=== PATIENT | male | born 1965 | race American Indian/Alaskan Native ===

== ENCOUNTER 2017-08-09 00:04 | Inpatient (IN) | payer OTHER ==
[2017-08-09 00:38] LABS: Basophils % (Auto) 0.7 % (0.0-1.8); Eosinophils % (Auto) 0.3 % (0.0-4.3); Hemoglobin 17.9 gm/dl (11.8-15.2); Mean Corpuscular HGB Conc 34 % (32-34); Mean Corpuscular Hemoglobin 34 pg (28-32); Mean Corpuscular Volume 98 fl (84-94); Platelet Count 250 K/mm3 (140-440); Red Cell Distribution Width 14.3 % (13.2-15.2); White Blood Count 8.9 K/mm3 (4.5-11.0)
[2017-08-09 00:57] LABS: Anion Gap 23 mmol/L; BUN/Creatinine Ratio 7; Blood Urea Nitrogen 10 mg/dL (9-20); Calcium 9.4 mg/dL (8.4-10.2); Carbon Dioxide 22 mmol/L (22-30); Chloride 97.9 mmol/L (98-107); Glucose 91 mg/dL (75-100); Potassium 3.8 mmol/L (3.6-5.0); Sodium 139 mmol/L (137-145)
[2017-08-09 04:42] LABS: Urine Drugs of Abuse Note Disclamer
[2017-08-09 05:01] LABS: Bacteria,Urine 1+ /HPF (Negative); Bilirubin,Urine NEG (Negative); Blood,Urine MOD (Negative); Ketones,Urine NEG (Negative); Leukocyte Esterase,Urine NEG (Negative); Mucus,Urine FEW /HPF; Nitrite,Urine NEG (Negative); Protein,Urine <15 mg/dL mg/dL (Negative); Urobilinogen,Urine < 2.0 mg/dL (<2.0)
--- NOTE | 2017-08-09 10:08 | Emergency Department Report ---
ED Chest Pain HPI - General Chief Complaint: Chest Pain Stated Complaint: CHEST PAIN/SOB Time Seen by Provider: 08/09/17 10:07 Source: patient Mode of arrival: Ambulatory Limitations: No Limitations - History of Present Illness Initial Comments: This is a 51-year-old male, the patient does not have a primary care doctor and he is previously unknown to this provider. Patient presents to the ER with complaint of central chest pain, associated with lightheadedness, diaphoresis and near syncope. The pain does not radiate to the back, arms or neck. There is no vomiting. Patient describes the pain also decreases when he consumes water. There is no abdominal pain. There is no leg pain. There is no leg swelling. No recent trips. No recent surgeries. No recent aspirin use, no recent cocaine use. Patient states no family history of DVT, pulmonary M Guzman , heart disease that he is aware of. MD Complaint: chest pain -: Gradual Pain Location: substernal, left chest Pain Radiation: none Severity scale (0 -10): 1 Quality: aching Consistency: intermittent Improves With: other (per hpi) Worsens With: other (per hpi) re: diaphoresis Treatments Prior to Arrival: none Aspirin use within the Past 7 Days: (0) No - Related Data Previous Rx's Medication Instructions Recorded Last Taken Type Acetaminophen/Codeine [Tylenol #3] 1 tab PO Q6H PRN #12 tab 12/14/16 Unknown Rx Amoxicillin 500 mg PO BID #20 capsule 12/14/16 Unknown Rx Chlorhexidine Mouthwash [Peridex] 15 ml MM BID 7 Days 12/14/16 Unknown Rx Ibuprofen [Motrin] 600 mg PO Q8H PRN #15 tablet 12/14/16 Unknown Rx Allergies Allergy/AdvReac Type Severity Reaction Status Date / Time No Known Allergies Allergy Verified 12/14/16 08:07 Heart Score - HEART Score History: Moderately suspicious EKG: Non-specific Age: 45-65 Risk factors: No known risk factors Troponin: < normal limit HEART Score: 3 - Critical Actions Critical Actions: 0-3 pts:0.9-1.7%risk of adverse cardiac event.Candidate for discharge ED Review of Systems ROS: Stated complaint: CHEST PAIN/SOB Other details as noted in HPI ED Past Medical Hx - Past Medical History Previous Medical History?: No Hx Hypertension: No - Surgical History Past Surgical History?: No - Social History Smoking Status: Current Every Day Smoker Substance Use Type: None - Medications Home Medications: Home Medications Medication Instructions Recorded Confirmed Last Taken Type Acetaminophen/Codeine [Tylenol #3] 1 tab PO Q6H PRN #12 tab 12/14/16 Unknown Rx Amoxicillin 500 mg PO BID #20 capsule 12/14/16 Unknown Rx Chlorhexidine Mouthwash [Peridex] 15 ml MM BID 7 Days 12/14/16 Unknown Rx Ibuprofen [Motrin] 600 mg PO Q8H PRN #15 tablet 12/14/16 Unknown Rx ED Physical Exam - General Limitations: No Limitations General appearance: alert, in no apparent distress - Head Head exam: Present: atraumatic, normocephalic - Eye Eye exam: Present: normal appearance, EOMI. Absent: nystagmus - ENT ENT exam: Present: normal exam, normal orophraynx, mucous membranes moist, normal external ear exam - Neck Neck exam: Present: normal inspection, full ROM. Absent: tenderness, meningismus - Respiratory Respiratory exam: Present: normal lung sounds bilaterally. Absent: respiratory distress, wheezes, rales, rhonchi, stridor, chest wall tenderness, accessory muscle use, decreased breath sounds, prolonged expiratory - Cardiovascular Cardiovascular Exam: Present: regular rate, normal rhythm, normal heart sounds. Absent: bradycardia, tachycardia, irregular rhythm, systolic murmur, diastolic murmur, rubs, gallop - GI/Abdominal GI/Abdominal exam: Present: soft, normal bowel sounds. Absent: distended, tenderness, guarding, rebound, rigid, pulsatile mass - Rectal Rectal exam: Present: deferred - Extremities Exam Extremities exam: Present: normal inspection, full ROM, normal capillary refill , other (2+ pulses noted in the bilateral upper and lower extremities, pulses are equal). Absent: pedal edema, joint swelling, calf tenderness - Back Exam Back exam: Present: normal inspection, full ROM. Absent: paraspinal tenderness , vertebral tenderness - Neurological Exam Neurological exam: Present: alert, oriented X3, normal gait, other (Extraocular movements intact. Tongue midline. No facial droop. Facial sensation intact to light touch in the V1, V2, V3 distribution bilaterally. 5 and 5 strength in 4 extremities.. Sensation is intact to light touch in 4 extremities.). Absent : motor sensory deficit - Psychiatric Psychiatric exam: Present: anxious - Skin Skin exam: Present: warm, dry, intact, normal color. Absent: rash ED Course Vital Signs 08/09/17 08/09/17 08/09/17 00:16 08:11 09:27 Temperature 98.1 F Pulse Rate 94 H 77 Respiratory 18 18 19 Rate Blood Pressure 99/66 Blood Pressure 122/83 [Right] O2 Sat by Pulse 95 97 Oximetry JESSENIA score - Jessenia Score Age > 65: (0) No Aspirin use within the Past 7 Days: (0) No 3 or more CAD Risk Factors: (0) No 2 or more Angina events in past 24 hrs: (0) No Known CAD with more than 50% Stenosis: (0) No Elevated Cardiac Markers: (0) No ST Deviation Greater than 0.5mm: (0) No JESSENIA Score: 0 ED Medical Decision Making - Lab Data Result diagrams: 08/09/17 00:22 08/09/17 00:22 Vital Signs 08/09/17 08/09/17 08/09/17 00:16 08:11 09:27 Temperature 98.1 F Pulse Rate 94 H 77 Respiratory 18 18 19 Rate Blood Pressure 99/66 Blood Pressure 122/83 [Right] O2 Sat by Pulse 95 97 Oximetry Lab Results 08/09/17 08/09/17 08/09/17 Range/Units 00:22 00:22 03:21 WBC 8.9 (4.5-11.0) K/mm3 RBC 5.30 H (3.65-5.03) M/mm3 Hgb 17.9 H (11.8-15.2) gm/dl Hct 52.0 H (35.5-45.6) % MCV 98 H (84-94) fl MCH 34 H (28-32) pg MCHC 34 (32-34) % RDW 14.3 (13.2-15.2) % Plt Count 250 (140-440) K/mm3 Lymph % (Auto) 30.5 (13.4-35.0) % [place] % (Auto) 8.3 H (0.0-7.3) % Eos % (Auto) 0.3 (0.0-4.3) % Baso % (Auto) 0.7 (0.0-1.8) % Lymph # 2.7 (1.2-5.4) K/mm3 [place] # 0.7 (0.0-0.8) K/mm3 Eos # 0.0 (0.0-0.4) K/mm3 Baso # 0.1 (0.0-0.1) K/mm3 Seg Neutrophils % 60.2 (40.0-70.0) % Seg Neutrophils # 5.4 (1.8-7.7) K/mm3 Sodium 139 (137-145) mmol/L Potassium 3.8 (3.6-5.0) mmol/L Chloride 97.9 L (98-107) mmol/L Carbon Dioxide 22 (22-30) mmol/L Anion Gap 23 mmol/L BUN 10 (9-20) mg/dL Creatinine 1.4 (0.8-1.5) mg/dL Estimated GFR > 60 ml/min BUN/Creatinine Ratio 7 % Glucose 91 (75-100) mg/dL Calcium 9.4 (8.4-10.2) mg/dL Troponin T < 0.010 < 0.010 (0.00-0.029) ng/mL Urine Color (Yellow) Urine Turbidity (Clear) Urine pH (5.0-7.0) Ur Specific [place] (1.003-1.030) Urine Protein (Negative) mg/dL Urine Glucose (UA) (Negative) mg/dL Urine Ketones (Negative) mg/dL Urine Blood (Negative) Urine Nitrite (Negative) Urine Bilirubin (Negative) Urine Urobilinogen (<2.0) mg/dL Ur Leukocyte Esterase (Negative) Urine WBC (Auto) (0.0-6.0) /HPF Urine RBC (Auto) (0.0-6.0) /HPF U Epithel Cells (Auto) (0-13.0) /HPF Urine Bacteria (Auto) (Negative) /HPF Hyaline Casts /LPF Urine Mucus /HPF Urine Opiates Screen Urine Methadone Screen Ur Barbiturates Screen Ur Phencyclidine Scrn Ur Amphetamines Screen U Benzodiazepines Scrn Urine Cocaine Screen U Marijuana (THC) Screen Drugs of Abuse Note 08/09/17 08/09/17 08/09/17 Range/Units 04:37 04:37 06:15 WBC (4.5-11.0) K/mm3 RBC (3.65-5.03) M/mm3 Hgb (11.8-15.2) gm/dl Hct (35.5-45.6) % MCV (84-94) fl MCH (28-32) pg MCHC (32-34) % RDW (13.2-15.2) % Plt Count (140-440) K/mm3 Lymph % (Auto) (13.4-35.0) % [place] % (Auto) (0.0-7.3) % Eos % (Auto) (0.0-4.3) % Baso % (Auto) (0.0-1.8) % Lymph # (1.2-5.4) K/mm3 [place] # (0.0-0.8) K/mm3 Eos # (0.0-0.4) K/mm3 Baso # (0.0-0.1) K/mm3 Seg Neutrophils % (40.0-70.0) % Seg Neutrophils # (1.8-7.7) K/mm3 Sodium (137-145) mmol/L Potassium (3.6-5.0) mmol/L Chloride (98-107) mmol/L Carbon Dioxide (22-30) mmol/L Anion Gap mmol/L BUN (9-20) mg/dL Creatinine (0.8-1.5) mg/dL Estimated GFR ml/min BUN/Creatinine Ratio % Glucose (75-100) mg/dL Calcium (8.4-10.2) mg/dL Troponin T < 0.010 (0.00-0.029) ng/mL Urine Color Yellow (Yellow) Urine Turbidity Clear (Clear) Urine pH 5.0 (5.0-7.0) Ur Specific [place] 1.011 (1.003-1.030) Urine Protein <15 mg/dl (Negative) mg/dL Urine Glucose (UA) Neg (Negative) mg/dL Urine Ketones Neg (Negative) mg/dL Urine Blood Mod (Negative) Urine Nitrite Neg (Negative) Urine Bilirubin Neg (Negative) Urine Urobilinogen < 2.0 (<2.0) mg/dL Ur Leukocyte Esterase Neg (Negative) Urine WBC (Auto) 2.0 (0.0-6.0) /HPF Urine RBC (Auto) 3.0 (0.0-6.0) /HPF U Epithel Cells (Auto) 1.0 (0-13.0) /HPF Urine Bacteria (Auto) 1+ (Negative) /HPF Hyaline Casts 7 /LPF Urine Mucus Few /HPF Urine Opiates Screen Presumptive negative Urine Methadone Screen Presumptive negative Ur Barbiturates Screen Presumptive negative Ur Phencyclidine Scrn Presumptive negative Ur Amphetamines Screen Presumptive negative U Benzodiazepines Scrn Presumptive negative Urine Cocaine Screen Presumptive negative U Marijuana (THC) Screen Presumptive positive Drugs of Abuse Note Disclamer - EKG Data -: EKG Interpreted by Me - EKG Data When compared to previous EKG there are: previous EKG unavailable 08/09/17 10:50 EKG #1: Normal sinus, 73 bpm, normal axis, normal QTC, left ventricular hypertrophy, poor R wave progression, abnormal EKG, not morphologically consistent with STEMI. EKG #2 demonstrates sinus, high left ventricular voltage, nonspecific ST morphology V2, V3, not consistent with STEMI. Abnormal EKG. No prior for comparison. - Radiology Data Radiology results: image reviewed interpreted by me: X-ray of the chest is negative for acute disease, hyperinflated lungs are suggested - Medical Decision Making Differential diagnosis: GERD, gastritis, pneumonia, acute coronary syndrome, pericarditis, myocarditis Assessment and plan: 51-year-old male with chest pain, diaphoresis, near syncope , abnormal EKG. Troponin negative 3. Therefore, pericarditis, myocarditis unlikely. X-ray of the chest negative. Equal pulses in 4 extremities, not especially hypertensive, therefore doubt aortic disease. Given clinical history , abnormal EKG, patient is not suitable to have an ACS wrist revocation as an outpatient. Case presented to the hospital nurse practitioner, Alexander Cunha; she accepts the patient to the medical service Critical care attestation.: If time is entered above; I have spent that time in minutes in the direct care of this critically ill patient, excluding procedure time. ED Disposition Clinical Impression: Chest pain Disposition: -09 OP ADMIT IP TO THIS HOSP Is pt being admited?: Yes Does the pt Need Aspirin: Yes Condition: Stable Instructions: Chest Pain (ED) Referrals: PRIMARY CARE, [Primary Care Provider] - 3-5 Days
[2017-08-09] MEDS ORDERED: TYLENOL PO PRN (10:45)
[2017-08-09] MEDS ORDERED: DULCOLAX PR PRN (10:45)
[2017-08-09] MEDS ORDERED: MORPHINE IV PRN (10:45)
[2017-08-09] MEDS ORDERED: NITROSTAT SL PRN (10:47)
[2017-08-09] MEDS ORDERED: BABY ASPIRIN PO ONE (10:52)
--- NOTE | 2017-08-09 10:52 | XRay Report ---
CHEST 2 VIEWS INDICATION: Chest pain. COMPARISON: None similar at this institution. FINDINGS: PA and lateral chest radiographs demonstrate normal cardiomediastinal silhouette. Clear, mildly hyperinflated lungs. Intact bones. CONCLUSION: No acute disease in the chest. Thank you for the opportunity to participate in this patient's care.
--- NOTE | 2017-08-09 12:37 | History and Physical Report ---
History of Present Illness Date of examination: 08/09/17 Date of admission: 08/09/17 11:54 Chief complaint: Chest pain History of present illness: Patient is a 51 years old male with no past medical history who presented to the Emergency Department complaining of Midsternal chest pain. He states that the pain began yesterday while he was at work, intermittent midsternal chest pain. Patient described the pain as, sharp, pressure and squeezing in his chest ; that radiates to the back. The sharp pain lasted around 1 minute. There is no aggravating or reliving factors. The painful episodes did not increase in intensity or severity during this time. Patient denies chest pain at present time. He denies nausea, vomiting during these episodes of pain. He experienced shortness of breath, nausea, and diaphoresis during these episodes of pain. He has never had chest pain in the past. He continued to have several episodes of the pain throughout the morning, he decided to come to the emergency department. Past History Past Medical History: No medical history Past Surgical History: No surgical history Social history: smoking Family history: hypertension Medications and Allergies Allergies Allergy/AdvReac Type Severity Reaction Status Date / Time No Known Allergies Allergy Verified 12/14/16 08:07 Home Medications Medication Instructions Recorded Confirmed Last Taken Type No Known Home Medications [No 08/09/17 08/09/17 Unknown History Reported Home Medications] Active Meds: Active Medications Acetaminophen (Tylenol) 650 mg PO Q4H PRN PRN Reason: Pain MILD(1-3)/Fever >100.5/YIN Aspirin (Ecotrin) 325 mg PO QDAY SONG Bisacodyl (Dulcolax) 10 mg IN QDAY PRN PRN Reason: Constipation unrelieved by MOM Enoxaparin Sodium (Lovenox) 40 mg SUB-Q QDAY SONG Morphine Sulfate (Morphine) 2 mg IV Q4H PRN PRN Reason: Pain, Moderate (4-6) Nitroglycerin (Nitrostat) 0.4 mg SL .Q5MIN PRN PRN Reason: Chest Pain Review of Systems Constitutional: no weight gain, no fever, no chills Ears, nose, mouth and throat: no ear discharge, no tinnitis, no decreased hearing, no nose pain, no nasal congestion Cardiovascular: chest pain, lightheadedness, shortness of breath, no orthopnea, no rapid/irregular heart beat, no edema Respiratory: no cough, no cough with sputum, no excessive sputum, no hemoptysis Gastrointestinal: no diarrhea, no constipation, no change in bowel habits Genitourinary Male: no discharge, no urinary frequency, no urinary hesitancy Musculoskeletal: no shooting arm pain, no arm numbness/tingling, no low back pain, no shooting leg pain Integumentary: no sores, no wounds, no jaundice Neurological: no weakness, no parathesias, no numbness Psychiatric: no anxiety, no sleep disturbances, no insomnia Endocrine: no heat intolerance, no polyphagia, no excessive thirst, no polydipsia Hematologic/Lymphatic: no easy bruising, no easy bleeding Allergic/Immunologic: no urticaria, no allergic rhinitis Exam - Constitutional Vitals: Temp Pulse Resp BP Pulse Ox 98.1 F 76 17 111/74 93 08/09/17 00:16 08/09/17 11:28 08/09/17 11:28 08/09/17 11:28 08/09/17 11:28 General appearance: Present: no acute distress - EENT Eyes: Present: PERRL ENT: hearing intact - Neck Neck: Present: supple - Respiratory Respiratory effort: normal Respiratory: bilateral: CTA - Cardiovascular Rhythm: regular Heart Sounds: Present: S1 & S2 - Abdominal General gastrointestinal: Present: soft, non-tender Male genitourinary: Present: deferred - Rectal Rectal Exam: deferred - Integumentary Integumentary: Present: clear, warm, dry - Musculoskeletal Musculoskeletal: strength equal bilaterally - Psychiatric Psychiatric: appropriate mood/affect - Neurologic Neurologic: moves all extremities - Allied Health Allied health notes reviewed: nursing Results - Labs CBC & Chem 7: 08/09/17 00:22 08/09/17 00:22 Labs: Laboratory Last Values WBC 8.9 K/mm3 (4.5-11.0) 08/09/17 00:22 RBC 5.30 M/mm3 (3.65-5.03) H 08/09/17 00:22 Hgb 17.9 gm/dl (11.8-15.2) H 08/09/17 00:22 Hct 52.0 % (35.5-45.6) H 08/09/17 00:22 MCV 98 fl (84-94) H 08/09/17 00:22 MCH 34 pg (28-32) H 08/09/17 00:22 MCHC 34 % (32-34) 08/09/17 00: RDW 14.3 % (13.2-15.2) 08/09/17 00:22 Plt Count 250 K/mm3 (140-440) 08/09/17 00: Lymph % (Auto) 30.5 % (13.4-35.0) 08/09/17 00: [place] % (Auto) 8.3 % (0.0-7.3) H 08/09/17 00:22 Eos % (Auto) 0.3 % (0.0-4.3) 08/09/17 00: Baso % (Auto) 0.7 % (0.0-1.8) 08/09/17 00: Lymph # 2.7 K/mm3 (1.2-5.4) 08/09/17 00: [place] # 0.7 K/mm3 (0.0-0.8) 08/09/17 00:22 Eos # 0.0 K/mm3 (0.0-0.4) 08/09/17 00:22 Baso # 0.1 K/mm3 (0.0-0.1) 08/09/17 00: Seg Neutrophils % 60.2 % (40.0-70.0) 08/09/17 00: Seg Neutrophils # 5.4 K/mm3 (1.8-7.7) 08/09/17 00: Sodium 139 mmol/L (137-145) 08/09/17 00:22 Potassium 3.8 mmol/L (3.6-5.0) 08/09/17 00:22 Chloride 97.9 mmol/L (98-107) L 08/09/17 00: Carbon Dioxide 22 mmol/L (22-30) 08/09/17 00: Anion Gap 23 mmol/L 08/09/17 00:22 BUN 10 mg/dL (9-20) 08/09/17 00: Creatinine 1.4 mg/dL (0.8-1.5) 08/09/17 00:22 Estimated GFR > 60 ml/min 08/09/17 00: BUN/Creatinine Ratio 7 % 08/09/17 00:22 Glucose 91 mg/dL (75-100) 08/09/17 00:22 Calcium 9.4 mg/dL (8.4-10.2) 08/09/17 00:22 Troponin T < 0.010 ng/mL (0.00-0.029) 08/09/17 06:15 Urine Color Yellow (Yellow) 08/09/17 04:37 Urine Turbidity Clear (Clear) 08/09/17 04:37 Urine pH 5.0 (5.0-7.0) 08/09/17 04:37 Ur Specific [place] 1.011 (1.003-1.030) 08/09/17 04:37 Urine Protein <15 mg/dl mg/dL (Negative) 08/09/17 04:37 Urine Glucose (UA) Neg mg/dL (Negative) 08/09/17 04:37 Urine Ketones Neg mg/dL (Negative) 08/09/17 04:37 Urine Blood Mod (Negative) 08/09/17 04:37 Urine Nitrite Neg (Negative) 08/09/17 04:37 Urine Bilirubin Neg (Negative) 08/09/17 04:37 Urine Urobilinogen < 2.0 mg/dL (<2.0) 08/09/17 04:37 Ur Leukocyte Esterase Neg (Negative) 08/09/17 04:37 Urine WBC (Auto) 2.0 /HPF (0.0-6.0) 08/09/17 04:37 Urine RBC (Auto) 3.0 /HPF (0.0-6.0) 08/09/17 04:37 U Epithel Cells (Auto) 1.0 /HPF (0-13.0) 08/09/17 04:37 Urine Bacteria (Auto) 1+ /HPF (Negative) 08/09/17 04:37 Hyaline Casts 7 /LPF 08/09/17 04:37 Urine Mucus Few /HPF 08/09/17 04:37 Urine Opiates Screen Presumptive negative 08/09/17 04:37 Urine Methadone Screen Presumptive negative 08/09/17 04:37 Ur Barbiturates Screen Presumptive negative 08/09/17 04:37 Ur Phencyclidine Scrn Presumptive negative 08/09/17 04:37 Ur Amphetamines Screen Presumptive negative 08/09/17 04:37 U Benzodiazepines Scrn Presumptive negative 08/09/17 04:37 Urine Cocaine Screen Presumptive negative 08/09/17 04:37 U Marijuana (THC) Screen Presumptive positive 08/09/17 04:37 Drugs of Abuse Note Disclamer 08/09/17 04:37 - Imaging and Cardiology Chest x-ray: image reviewed (unremarkable) Assessment and Plan Assessment and plan: Chest Pain We will admit to telemetry floor. EKG normal sinus, no ST elevation or T-wave inversion. Negative cardiac enzyme X3 Start on aspirin Nitroglycerin when necessary Morphine ordered for pain Stress test ordered. DVT prophylaxis Lovenox Advance Directives: Yes VTE prophylaxis?: Chemical Contraindication Mechanical VTE Prophylaxis: Treatment Not Indicated Plan of care discussed with patient/family: Yes
[2017-08-09] MEDS ORDERED: AMBIEN PO PRN (21:53)
[2017-08-10 05:35] LABS: Anion Gap 18 mmol/L; BUN/Creatinine Ratio 15; Blood Urea Nitrogen 12 mg/dL (9-20); Calcium 8.9 mg/dL (8.4-10.2); Carbon Dioxide 24 mmol/L (22-30); Chloride 99.9 mmol/L (98-107); Glucose 98 mg/dL (75-100); Potassium 4.2 mmol/L (3.6-5.0); Sodium 138 mmol/L (137-145)
[2017-08-10 05:36] LABS: Basophils % (Auto) 0.6 % (0.0-1.8); Eosinophils % (Auto) 0.9 % (0.0-4.3); Hematocrit 49.3 % (35.5-45.6); Hemoglobin 17.3 gm/dl (11.8-15.2); Mean Corpuscular HGB Conc 35 % (32-34); Mean Corpuscular Hemoglobin 35 pg (28-32); Mean Corpuscular Volume 99 fl (84-94); Platelet Count 203 K/mm3 (140-440); White Blood Count 6.7 K/mm3 (4.5-11.0)
[2017-08-10] MEDS ORDERED: LEXISCAN IV ONE ×2 (08:09→08:10)
[2017-08-10] MEDS ORDERED: LOVENOX SUB-Q SCH (10:00)
[2017-08-10] MEDS ORDERED: ECOTRIN PO SCH (10:00)
--- NOTE | 2017-08-10 11:35 | Consultation ---
History of Present Illness Consult date: 08/10/17 Requesting physician: EVELINA BRYANT Consult reason: chest pain, other (abnormal nuclear scan) History of present illness: The patient has no prior history of medical disease. While at work on the day of presentation, the developed a sharp substernal chest pain which lasted for a couple of minutes, resolving spontaneously. It was also associated with dizziness. He notified his son who arranged for him to be brought to the emergency department. He claims that shortly after chest pain resolved, he experienced low back pain for a while. After ruling out for myocardial infarction with negative cardiac enzymes, he underwent a treadmill exercise stress test this morning. He completed 12 minutes and 7 seconds of a Mata protocol without any ischemic EKG changes or chest pain. He attained 12.2 METs. His nuclear scan was technically limited and showed patchy defects suggestive of mild ischemia in the LAD and RCA territories. In addition, gated SPECT revealed an ejection fraction of 42%. The myocardial perfusion defects are of questionable significance in this gentleman who demonstrated excellent exercise capacity without any ischemic changes on EKG or symptoms. Echocardiogram was performed as part of this consultation due to LV systolic dysfunction suggested by gated SPECT imaging. Echo showed normal LV systolic function with an ejection fraction of 50-55% and Grade 1 diastolic LV dysfunction with no significant valvular abnormalities. Past History Past Medical History: No medical history Past Surgical History: No surgical history Social history: (with 8 children), smoking, alcohol abuse (3 cans of beer daily.) Family history: denies: CAD Medications and Allergies Allergies Allergy/AdvReac Type Severity Reaction Status Date / Time No Known Allergies Allergy Verified 12/14/16 08:07 Home Medications Medication Instructions Recorded Confirmed Last Taken Type No Known Home Medications [No 08/09/17 08/09/17 Unknown History Reported Home Medications] Active Meds: Active Medications Acetaminophen (Tylenol) 650 mg PO Q4H PRN PRN Reason: Pain MILD(1-3)/Fever >100.5/YIN Aspirin (Ecotrin) 325 mg PO QDAY SONG Bisacodyl (Dulcolax) 10 mg MD QDAY PRN PRN Reason: Constipation unrelieved by MOM Enoxaparin Sodium (Lovenox) 40 mg SUB-Q QDAY [facility] Influenza Virus Vaccine Quadrival (Fluarix Quad [id number](36 Mos+)) 0.5 ml IM .ONCE ONE Stop: 08/10/17 12:01 Morphine Sulfate (Morphine) 2 mg IV Q4H PRN PRN Reason: Pain, Moderate (4-6) Nitroglycerin (Nitrostat) 0.4 mg SL .Q5MIN PRN PRN Reason: Chest Pain Pneumococcal Polyvalent Vaccine (Pneumovax 23) 0.5 ml IM .ONCE ONE Stop: 08/10/17 12:01 Zolpidem Tartrate (Ambien) 10 mg PO QHS PRN PRN Reason: Insomnia Last Admin: 08/09/17 22:23 Dose: 10 mg Review of Systems Constitutional: no fever, no chills Ears, nose, mouth and throat: no ear pain, no ear discharge, no sore throat Cardiovascular: chest pain, lightheadedness, no palpitations, no edema, no shortness of breath Respiratory: no cough, no hemoptysis, no shortness of breath Gastrointestinal: no abdominal pain, no nausea, no vomiting, no diarrhea, no constipation Genitourinary Male: no dysuria, no urinary frequency Rectal: no pain, no bleeding Musculoskeletal: low back pain, no neck stiffness, no neck pain Integumentary: no rash, no pruritis Neurological: no weakness, no parathesias, no headaches Endocrine: no cold intolerance, no heat intolerance Hematologic/Lymphatic: no easy bruising, no easy bleeding Allergic/Immunologic: no urticaria, no wheezing Physical Examination Vital Signs Last Vital Signs Temp 98.3 F 08/10/17 05:43 Pulse 79 08/10/17 05:43 Resp 20 08/10/17 05:43 BP 105/80 08/10/17 05:43 Pulse Ox 96 08/10/17 05:43 General appearance: no acute distress HEENT: Positive: EOMI, Normocephaly, Mucus Membranes Moist Neck: Positive: neck supple, trachea midline Cardiac: Positive: Reg Rate and Rhythm, S1/S2 Lungs: Positive: clear to auscultation Neuro: Positive: Grossly Intact Abdomen: Positive: Soft, Active Bowel Sounds. Negative: Tender Skin: Positive: Clear. Negative: Rash Musculoskeletal: Normal Range of Motion Extremities: Present: normal. Absent: edema Results 08/10/17 04:47 08/10/17 04:47 CBC 08/10/17 Range/Units 04:47 WBC 6.7 (4.5-11.0) K/mm3 RBC 5.00 (3.65-5.03) M/mm3 Hgb 17.3 H (11.8-15.2) gm/dl Hct 49.3 H (35.5-45.6) % Plt Count 203 (140-440) K/mm3 Lymph # 3.3 (1.2-5.4) K/mm3 [place] # 0.5 (0.0-0.8) K/mm3 Eos # 0.1 (0.0-0.4) K/mm3 Baso # 0.0 (0.0-0.1) K/mm3 Comprehensive Metabolic Panel 08/10/17 Range/Units 04:47 Sodium 138 (137-145) mmol/L Potassium 4.2 (3.6-5.0) mmol/L Chloride 99.9 (98-107) mmol/L Carbon Dioxide 24 (22-30) mmol/L BUN 12 (9-20) mg/dL Creatinine 0.8 (0.8-1.5) mg/dL Glucose 98 (75-100) mg/dL Calcium 8.9 (8.4-10.2) mg/dL - Imaging and Cardiology EKG: image reviewed EKG interpretations - Telemetry EKG Rhythm: Sinus Rhythm Assessment and Plan He may be discharged home from a cardiac standpoint to follow-up at my office in 2-3 weeks. - Patient Problems (1) Chest pain Current Visit: Yes Status: Acute Qualifiers: Chest pain type: C Ischemic chest pain type: I (2) Normal exercise tolerance test results Current Visit: Yes Status: Acute (3) Abnormal nuclear cardiac imaging test Current Visit: Yes Status: Acute
[2017-08-10] MEDS ORDERED: PNEUMOVAX 23 IM ONE (12:00)
[2017-08-10] MEDS ORDERED: Fluarix Quad 2017-2018(36 MOS+) IM ONE (12:00)
[2017-08-10 12:49] VITALS: BP 134/95
--- NOTE | 2017-08-10 15:42 | Discharge Summary ---
Providers - Providers Date of Admission: 08/09/17 11:54 Date of discharge: 08/10/17 Attending physician: JORDEN HEREDIA 08/10/17 10:55 Consult to Physician [CONS] Routine Consulting Provider: KANA FERNANDEZ Reason For Exam: Abnormal stress test Place consult to:: Dr. Fernandez Notified:: Dinora RUGGIEROhealth care coach physician: [employer] Hospitalization Reason for admission: chest pain Condition: Stable Pertinent studies: CXR MPI Treadmill exercise test Hospital course: Patient is a 51 yo AAM with no history of medical disease. While at work on the day of presentation, the developed a sharp substernal chest pain which lasted for a couple of minutes, resolving spontaneousl; it was also associated with dizziness; claims that shortly after chest pain resolved, he experienced low back pain for a while. After RI was ruled out with negative cardiac enzymes , he underwent a treadmill exercise test without any ischemic EKG changes or chest pain, but his nuclear scan showed patchy defects suggestive of mild ischemia in the LAD and RCA territories, and calculated EF was 42%. Per cardiology this myocardial perfusion defect are questionable significance. Echo also obtained and showed EF 50-55% and grade 1 diastolic LV dysfunction. Cardiology cleared him for discharge with an outpatient follow-up. Discharge diagnoses: Chest pain - possible angina Acute diastolic heart failure Drug use (marijuamna) Disposition: -01 TO HOME OR SELFCARE Time spent for discharge: 35 min Core Measure Documentation - Palliative Care Palliative Care/ Comfort Measures: Not Applicable - Core Measures Any of the following diagnoses?: none Exam - Physical Exam Narrative exam: Seen and examined: - Constitutional Vitals: Temp Pulse Resp BP Pulse Ox 98.3 F 69 18 134/95 97 08/10/17 12:48 08/10/17 12:48 08/10/17 12:48 08/10/17 12:48 08/10/17 12:48 General appearance: Present: no acute distress - EENT Eyes: Present: PERRL, EOM intact - Neck Neck: Present: supple, normal ROM. Absent: masses or JVD - Respiratory Respiratory effort: normal Respiratory: bilateral: CTA, negative: rhonchi, wheezing - Cardiovascular Rhythm: regular Heart Sounds: Present: S1 & S2. Absent: systolic murmur - Extremities Extremities: no ischemia - Abdominal General gastrointestinal: Present: soft, non-tender, non-distended, normal bowel sounds - Psychiatric Psychiatric: cooperative - Neurologic Neurologic: CNII-XII intact, no focal deficits Plan Activity: advance as tolerated Diet: low cholesterol, low salt Follow up with: PRIMARY CAREMD [Primary Care Provider] - 3-5 Days KANA FERNANDEZ MD [Staff Physician] - 14 Days Forms: Work/School Excuse Out Patient, Work/School Release Form Prescriptions: Aspirin EC [Aspirin Enteric Coated TAB] 325 mg PO QDAY #30 tablet Nitroglycerin [Nitrostat] 0.4 mg SL .Q5MIN PRN #15 tablet PRN Reason: Chest Pain
--- NOTE | 2017-08-10 23:09 | Treadmill Report ---
REASON FOR STUDY: Chest pain. IMAGING PROTOCOL: The patient received 10 mCi of Tc-99m Tetrofosmin for rest imaging, and 28 mCi Tc-99m Tetrofosmin for stress imaging. Imaging for all procedures was completed 30-90 minutes following the initial injection of Technetium 99m Tetrofosmin. SPECT imaging in the 180 degree arc was performed in the right anterior oblique projection. Computerized reconstruction of the images was performed for analysis. NUCLEAR IMAGING RESULTS: Technically limited study. Normal left ventricular cavity size with no change from stress to rest. Distribution of radionuclide within the left ventricle revealed a medium-sized area of photo-induction involving the apex. The degree of photo-induction is mild. Rest imaging showed almost complete improvement in this defect. There is also a small area of photo-induction involving the anteroseptal wall. The degree of photo-induction is mild to moderate. Rest imaging does not show any significant improvement in this defect. In addition, there is a [id number] area of photo-induction involving the inferior, inferoseptal and inferoapical region. The degree of photo-induction is moderate. Rest imaging showed partial improvement in this defect. Gated SPECT imaging revealed [id number] global left ventricular hypokinesis. The calculated left ventricular ejection fraction is 42%. IMPRESSION: Technically limited study. Medium-size reversible apical defect. Small fixed anteroseptal defect. Large, partially reversible inferior, inferoseptal, and inferoapical defect. Mild to moderate global left ventricular hypokinesis. The calculated EF 42%. These findings suggest prior infarction with mild residual ischemia in the left anterior descending and right coronary artery territories. However, due to the technical quality of this study, clinical correlation is recommendation. JOB# [id number] MUKUL/IAM RUFFIN
--- NOTE | 2017-08-10 23:50 | Treadmill Report ---
TREADMILL EXERCISE STRESS TEST REPORT REASON FOR STUDY: Chest pain. STRESS TEST PROTOCOL: The patient completed 12 minutes and 7 seconds of a Mata protocol. He attained a peak heart rate of 149 per minute which is 105% of his age predicted maximum (12.2 METS). No diagnostic ischemic EKG changes. No chest pain. There were occasional PVCs during exercise. The test was terminated due to fatigue. IMPRESSION: Negative stress test. No evidence of stress-induced ischemia. Nuclear imaging report to follow. JOB# [id number] AGO/NTS
== END 2017-08-10 16:26 | disposition home or self-care (01) | DRG 313 ==
LOC: ED 00:04 → 4A 11:54
PROVIDERS: ADMIT Internal Medicine; ATTEND Internal Medicine
DX: R07.9 Chest pain, unspecified (principal); I50.31 Acute diastolic (congestive) heart failure; F17.210 Nicotine dependence, cigarettes, uncomplicated; Z82.49 Family history of ischemic heart disease and other diseases of the circulatory system; M54.5 Low back pain; F12.10 Cannabis abuse, uncomplicated
CPT/HCPCS: 36415; 71020; 78452; 80048; 80307; 81001; 82962; 84484; 85025; 90686; 90732; 93005; 93010; 93017; 93306; 99406; A9502; J1650; J2785